=== PATIENT | female | born 1980 | race American Indian/Alaskan Native ===

== ENCOUNTER 2020-06-12 16:03 | Emergency (ER) | payer SELFPAY ==
[2020-06-12 16:41] VITALS: BP 142/107
--- NOTE | 2020-06-12 18:19 | Emergency Department Report ---
ED Female HPI - General Chief complaint: Urogenital-Female Stated complaint: RT BREAST/POSS INFECTION Time Seen by Provider: 06/12/20 18:11 Source: patient Mode of arrival: Ambulatory Limitations: No Limitations - History of Present Illness Initial comments: 40-year-old -[place] female presents to the emergency room complaining of abscess that is draining to her right breast times a few days with a history of hypertension. Patient states that yesterday it burst. Patient has been using gauze to absorb the discharge. She denies any fever chills no nausea no vomiting or headache. Patient is noted to have an elevated blood pressure 142/107 has a history of hypertension. Onset/Timin -: days(s) Location: other (Right breast) Severity scale (0 -10): 6 Quality: sharp Consistency: intermittent Improves with: none Worsens with: none Are you Now?: No - Related Data Previous Rx's Medication Instructions Recorded Last Taken Type Mupirocin [Bactroban 2%] 1 applic TP TID #1 tube 06/12/20 Unknown Rx Sulfamethoxazole/Trimethoprim 1 each PO BID 10 Days #20 tablet 06/12/20 Unknown Rx [Bactrim DS TAB] amLODIPine 5 mg PO DAILY #30 tab 06/12/20 Unknown Rx ED Review of Systems ROS: Stated complaint: RT BREAST/POSS INFECTION Other details as noted in HPI Comment: All other systems reviewed and negative ED Past Medical Hx - Past Medical History Previous Medical History?: Yes Hx Hypertension: Yes - Surgical History Past Surgical History?: Yes Additional Surgical History: Right ankle - Medications Home Medications: Home Medications Medication Instructions Recorded Confirmed Last Taken Type Mupirocin [Bactroban 2%] 1 applic TP TID #1 tube 06/12/20 Unknown Rx Sulfamethoxazole/Trimethoprim 1 each PO BID 10 Days #20 tablet 06/12/20 Unknown Rx [Bactrim DS TAB] amLODIPine 5 mg PO DAILY #30 tab 06/12/20 Unknown Rx ED Physical Exam - General Limitations: No Limitations ED Course Vital Signs 06/12/20 16:39 Temperature 98.8 F Pulse Rate 63 Respiratory 16 Rate Blood Pressure 142/107 [Right] O2 Sat by Pulse 98 Oximetry Critical care attestation.: If time is entered above; I have spent that time in minutes in the direct care of this critically ill patient, excluding procedure time. ED Disposition Clinical Impression: Breast abscess, Hypertension Disposition: DC-01 TO HOME OR SELFCARE Is pt being admited?: No Does the pt Need Aspirin: No Condition: Stable Instructions: Hypertension (ED), Abscess (ED) Additional Instructions: Please complete antibiotics as prescribed. Tylenol or ibuprofen for pain. Please take your blood pressure medication as prescribed is very important for you to follow-up with your primary care provider to have your blood pressure rechecked in 5 to 7 days. Prescriptions: amLODIPine 5 mg PO DAILY #30 tab Sulfamethoxazole/Trimethoprim [Bactrim DS TAB] 1 each PO BID 10 Days #20 tablet Mupirocin [Bactroban 2%] 1 applic TP TID #1 tube Referrals: KATHY PRAKASH MD [Staff Physician] - 3-5 Days DAPHNE RIVAS MD [Staff Physician] - 3-5 Days
== END 2020-06-12 18:37 | disposition home or self-care (01) ==
LOC: ED 16:03
DX: N61.1 Abscess of the breast and nipple (principal); I10 Essential (primary) hypertension; Z79.899 Other long term (current) drug therapy
CPT/HCPCS: 99281